=== PATIENT | male | born 2000 | race Caucasian/White ===

== ENCOUNTER 2020-11-14 01:31 | Inpatient (IN) ==
[2020-11-14] MEDS ORDERED: ceFAZolin 2000MG 2,000 MG/15 ML SYR IV STA (02:24)
[2020-11-14 03:13] LABS: Basophils # (auto) 0.03 K/uL (0-0.2); Basophils % (auto) 0.2 %; Eosinophils # (auto) 0.02 K/uL (0-0.5); Eosinophils % (auto) 0.1 %; Hematocrit (blood only) 46.4 % (42-52); Hemoglobin 15.6 g/dL (14.0-18.0); Immature Granulocytes # (auto) 0.07 K/uL (0.00-0.02); Immature Granulocytes % (auto) 0.4 %; Lymphocytes # (auto) 1.07 K/uL (1.2-3.4); Lymphocytes % (auto) 5.6 %; Mean Corpuscular Hemoglobin 28.3 pg (25-34); Mean Corpuscular Hgb Conc 33.6 g/dL (32-36); Mean Corpuscular Volume 84.2 fL (80-100); Monocytes # (auto) 1.14 K/uL (0.11-0.59); Neutrophils # (auto) 16.66 K/uL (1.4-6.5); Neutrophils % (auto) 87.7 %; Platelet Count 346 K/uL (130-400); RDW Coefficient of Variation 14.4 % (11.5-14.5); RDW Standard Deviation 44.5 fL (36.4-46.3); Red Blood Count 5.51 M/uL (4.7-6.1); White Blood Count 18.99 K/uL (4.8-10.8)
[2020-11-14 03:35] LABS: Albumin Level 4.9 gm/dl (3.4-5.0); Calcium 9.3 mg/dl (8.5-10.1); Creatinine Clr Calc Pharmacy 114.5 ml/min; Est GFR (African American) 107.8 ml/min; Est GFR (Non-African American) 93.1 ml/min; Potassium 3.5 mmol/L (3.5-5.1)
[2020-11-14 03:38] LABS: Albumin Globulin Ratio 1.2 (0.9-2); Bilirubin,Total 0.8 mg/dl (0.2-1); Globulin 4.1 gm/dl (2.5-4.0)
--- NOTE | 2020-11-14 03:38 | Emergency Department Note ---
History of Present Illness General Chief complaint: Dental/Oral Stated complaint: TOOTH BROKEN History of Present Illness Maximum Pain Intensity: 3 Meir Roman is a 20 year old male with no pertinent past medical history who presents to the Emergency Department for evaluation of left facial trauma after suffering a fall and striking his face on the edge of a stair just prior to arrival. The patient states that he was out drinking alcohol this evening. When he got home, he opened his front door and tripped over his dog causing him to fall forward into the stairway in front of him. He subsequently struck his left face/jaw off of the edge of the fist step. His friend at bedside states that he also hit his left head and briefly lost consciousness before coming to. The patient noticed bleeding coming from his left lower molars and had pain to his jaw. His friend also noticed an abrasion to his right scalp. The patient did not want to come to the Emergency Department but after much prompting, his friend convinced him to come for further evaluation. On arrival, the patient is complaining of a "broken left lower wisdom tooth" but has obvious trauma to his left mandible with visible bone with step-off between the back molars that is mobile with opening/closing his mouth. There is slow oozing of blood from the area, controlled with gauze packing. He denies taking any medications prior to arrival. He currently rates his pain as a 3/10 which worsens with movement of his jaw. The patient denies additional pain or injuries to his neck, chest, abdomen, pelvis, back, upper or lower extremities. He states that his tetanus status is up to date. Allergies Allergy/AdvReac Type Severity Reaction Status Date / Time No Known Allergies Allergy Unverified 11/14/20 07:28 Past Med/Surg History Medical History No significant active problems Surgical History No pertinent past surgical history Social History Smoking Status: Current every day smoker Second Hand Exposure: Yes; Do You Dip or Chew Tobacco: No; Tobacco Cessation Education Requested by Patient: No Hx Alcohol Use: Yes Hx Substance Use: No Preferred Language: Kyrgyz Communication Ability: Effective Nut Cracker Required: No Beliefs That Will Affect Care: Cultural Current Living Situation: Boarding Home Other Information That Helps Us Care for You: No Feels Safe at Home: Yes Safety Concerns: Feels Safe At This Time Review of Systems A total of 10 systems reviewed and were otherwise negative Physical Exam Vital Signs Vital Signs - 24 hr 11/14/20 01:36 11/14/20 03:09 11/14/20 03:30 Temperature 36.3 C L Temperature Source Temporal Artery Scan Pulse Rate 105 H 98 H Pulse Rate [Finger] 81 Pulse Rate from SpO2 Sensor 98 H Respiratory Rate 16 22 Respiratory Effort / Characteristics Non-Labored Spontaneous Respiratory Depth Normal Respiratory Pattern Regular Blood Pressure 144/91 H 140/89 Blood Pressure [Left Arm] 143/83 H Blood Pressure Mean 108 106 Blood Pressure Mean [Left Arm] 103 Blood Pressure Position Sitting Pulse Oximetry 96 97 98 Oxygen Delivery Method Room Air Room Air Sepsis Recent Fever Within 48 Hours No Sepsis New/Unexplained Change in Mental Status N/A Sepsis Action Taken by Nursing No Action Required 11/14/20 04:00 11/14/20 04:30 Temperature Temperature Source Pulse Rate 103 H 90 Pulse Rate [Finger] Pulse Rate from SpO2 Sensor 90 Respiratory Rate 13 13 Respiratory Effort / Characteristics Respiratory Depth Respiratory Pattern Blood Pressure 140/91 134/72 Blood Pressure [Left Arm] Blood Pressure Mean 107 92 Blood Pressure Mean [Left Arm] Blood Pressure Position Pulse Oximetry 99 Oxygen Delivery Method Sepsis Recent Fever Within 48 Hours Sepsis New/Unexplained Change in Mental Status Sepsis Action Taken by Nursing General: The patient is well-developed, well-nourished and in no acute distress. Laughing and takes much prompting to cooperate with exam. Head/eyes: Contusion to the right parietal scalp with overlying abrasion. Pupils 4mm and reactive to light bilaterally, EOMI Face/Oral: Left face appears edematous compared to the right with tenderness to palpation over the left jaw and TMJ. Obvious trauma to the left mandible with open fracture and visible bone between the 2nd and 3rd left lower molars with step-off which is mobile with opening/closing of the jaw. Slow ooze of blood from the area, controlled with gauze packing. Teeth do not appear to be fractured, no additional obvious trauma within the mouth. Oropharynx patent. Neck: Trachea midline, no meningismus, no mid-line cervical tenderness Resp: Good inspiratory effort on room air, lung sounds clear bilaterally CV: Regular rate and rhythm, peripheral pulses palpated Back: No midline tenderness to the thoracic spine, no midline tenderness to the lumbar spine, no obvious step-offs or deformities Abd: Soft, non-distended, non-tender to palpation without rebound, guarding or rigidity, no peritoneal signs MSK: No obvious long bone deformities. Moving all extremities with strength 5/5 throughout, sensation and peripheral pulses intact Neuro: Awake, alert and oriented x 3 Course Administered Medications Sodium Chloride (Nss 1000ml) 1,000 mls @ 150 mls/hr IV .[id number] JT Stop: 12/14/20 05:44 Last Admin: 11/14/20 06:08 Dose: 150 mls/hr Documented by: [id number] Discontinued Medications Cefazolin Sodium (Ancef 2000mg) 2,000 mg in 15 mls @ 3.75 mls/min IV NOW STA Stop: 11/14/20 02:27 Last Admin: 11/14/20 03:57 Dose: 3.75 mls/min Documented by: [id number] Ampicillin Sodium/Sulbactam Sodium 3,000 mg/ Sodium Chloride 108 mls @ 200 mls/hr IV NOW STA; Protocol Stop: 11/14/20 05:57 Last Infusion: 11/14/20 06:46 Dose: 0 mls/hr Documented by: [id number] Admin: 11/14/20 06:08 Dose: 200 mls/hr Documented by: [id number] Medical Decision Making Differential Diagnosis Intracranial trauma, cervical trauma, facial trauma, oral trauma, fractured teeth, fractured mandible/maxilla, jaw dislocation, alcohol intoxication among others were considered. Laboratory Data Result diagrams: 11/14/20 02:53 11/14/20 02:53 Lab Results 11/14/20 11/14/20 11/14/20 Range/Units 02:53 02:53 02:53 WBC 18.99 H (4.8-10.8) K/uL RBC 5.51 (4.7-6.1) M/uL Hgb 15.6 (14.0-18.0) g/dL Hct 46.4 (42-52) % MCV 84.2 (80-100) fL MCH 28.3 (25-34) pg MCHC 33.6 (32-36) g/dL RDW Std Deviation 44.5 (36.4-46.3) fL RDW Coeff of Riana 14.4 (11.5-14.5) % Plt Count 346 (130-400) K/uL MPV 10.0 (7.4-10.4) fL Immature Gran % (Auto) 0.4 % Neut % (Auto) 87.7 % Lymph % (Auto) 5.6 % Charlotte % (Auto) 6.0 % Eos % (Auto) 0.1 % Baso % (Auto) 0.2 % Neut # (Auto) 16.66 H (1.4-6.5) K/uL Lymph # (Auto) 1.07 L (1.2-3.4) K/uL Charlotte # (Auto) 1.14 H (0.11-0.59) K/uL Eos # (Auto) 0.02 (0-0.5) K/uL Baso # (Auto) 0.03 (0-0.2) K/uL Immature Gran # (Auto) 0.07 H (0.00-0.02) K/uL Sodium 136 (136-145) mmol/L Potassium 3.5 (3.5-5.1) mmol/L Chloride 109 H (98-107) mmol/L Carbon Dioxide 26 (21-32) mmol/L Anion Gap 1.0 L (3-11) BUN 7 (7-18) mg/dl Creatinine 1.13 (0.6-1.4) mg/dl Est Cr Clr Drug Dosing 114.5 ml/min Est GFR ( Amer) 107.8 ml/min Est GFR (Non-Af Amer) 93.1 ml/min BUN/Creatinine Ratio 6.0 L (10-20) Glucose 120 H (70-99) mg/dl Calcium 9.3 (8.5-10.1) mg/dl Total Bilirubin 0.8 (0.2-1) mg/dl AST 25 (15-37) U/L ALT 40 (12-78) U/L Alkaline Phosphatase 87 (45-117) U/L Total Protein 9.0 H (6.4-8.2) gm/dl Albumin 4.9 (3.4-5.0) gm/dl Globulin 4.1 H (2.5-4.0) gm/dl Albumin/Globulin Ratio 1.2 (0.9-2) Ethyl Alcohol mg/dL 154.0 H (0-3) mg/dl Imaging Data Radiologist's Impression: Cervical Spine CT 11/14/20 02:24 CT cervical spine wo con CLINICAL HISTORY: 20 years-old Male with head/face trauma. Acute head and facia l trauma status post fall COMPARISON: CT head and maxillofacial studies of same day TECHNIQUE: Multiple axial CT images of the cervical spine were obtained without contrast. A dose lowering technique was utilized adhering to the principles of ALARA. FINDINGS: Vertebral body heights and alignment are normal. No fracture or subluxation is identified. Straightening of the normal cervical lordosis. The intervertebral disc spaces are preserved. No significant central canal or neural foraminal stenosis is identified. Deep tissue air is noted within the left parapharyngeal tissues and also surrounding acute left mandibular fracture. The visualized lung apices appear clear. IMPRESSION: 1. No acute cervical spine fracture or subluxation. 2. Partially imaged acute and displaced left mandibular fracture with associated deep tissue air. Please refer to the CT maxillofacial study of same day for additional findings. ACT 112: Negative or not required by law. The above report was generated using voice recognition software. It may contain grammatical, syntax or spelling errors. Electronically signed by: Alfredito Diego M.D. 11/14/2020 8:[address] 11/14/20 02:24 CT facial bones wo con CLINICAL HISTORY: 20 years-old Male presenting with facial trauma, broken L mandible. Acute facial trauma status post fall COMPARISON STUDY: CT head and cervical spine studies of same day TECHNIQUE: High-resolution CT scan of the facial bones is performed. Images are reviewed in the axial, sagittal, and coronal planes. IV contrast was not administered for this examination. A dose lowering technique was utilized adhering to the principles of ALARA. FINDINGS: The bony orbits are intact and the orbital contents are within normal limits. The zygomatic arches, nasal bones, and pterygoid plates are preserved. The maxilla appears intact. There is an acute fracture fracture involving the left mandibular body with 8 mm medial displacement. The fracture extends through the third mandibular root. There is a considerable amount of adjacent deep tissue gas which extends into the parapharyngeal tissues. No additional mandibular fracture identified. No TMJ dislocation. The mastoid air cells and middle ear cavities are clear. Minimal mucosal thickening of the maxillary sinuses. The imaged calvarium and upper cervical spine are within normal limits. Partially imaged brain parenchyma is within normal limits. IMPRESSION: Acute and displaced fracture of the left mandibular body with fracture extension through the root of the third mandibular molar. ACT 112: Negative or not required by law. The above report was generated using voice recognition software. It may contain grammatical, syntax or spelling errors. Electronically signed by: Alfredito Diego M.D. 11/14/2020 8:[address] 11/14/20 02:24 CT head/brain wo con CLINICAL HISTORY: 20 years-old Male with hit head/face on step, facial trauma. Acute head injury status post trauma TECHNIQUE: Multiple axial CT images of the head were obtained without contrast. A dose lowering technique was utilized adhering to the principles of ALARA. CT DOSE: 1067.37 mGy.cm COMPARISON: CT maxillofacial same day FINDINGS: No acute intracranial hemorrhage, midline shift, intracranial mass, hydrocephalus, territorial ischemia or abnormal extra-axial collection. The calvarium is intact. 7.6 x 0.8 cm right parietal scalp hematoma. Partially imaged deep tissue air about the left parapharyngeal tissues. The paranasal sinuses, mastoid air cells, and middle ear cavities are clear. IMPRESSION: 1. No acute intracranial abnormality or calvarial fracture. 2. Right parietal scalp hematoma. 3. Partially imaged deep tissue air within the left parapharyngeal tissues secondary to acute left mandibular fracture as described on the CT maxillofacial study of same day. ACT 112: Negative or not required by law. The above report was generated using voice recognition software. It may contain grammatical, syntax or spelling errors. Electronically signed by: Alfredito Diego M.D. 11/14/2020 8:08 AM MDM Narrative Physical exam and history were performed. Nursing notes, EMR, and medication list were personally reviewed. Patient presented to the emergency department for evaluation of left facial trauma after he fell while intoxicated and struck his left face and right parietal scalp off of the edge of a step just prior to arrival. On exam, the patient appeared to have an open fracture through his left molars with visible bone and obvious step-off which was mobile with opening/closing of his jaw. After extensive discussion with the patient between myself, my attending physician, Dr. Gutierrez, and his mother whom was on speaker phone about the significance of his physical exam findings and the need for further evaluation of the extent of his injuries, he agreed to undergo CAT scan of his head, face, and neck. IV access was also established at this time and patient was given Ancef 2 mg for empiric coverage. Labs including CBC, CMP and alcohol were also obtained. Concurrently, patient was placed on cardiac monitoring. I offered the patient pain medication on several occasions however he declined my offer and stated that he was fine. Lab work resulted as above and was reviewed by myself. He does have leukocytosis with a white blood cell count of 18.99 consistent with his trauma. His blood alcohol level is elevated at 154.0 and his creatinine is slightly elevated at 1.1 likely due to alcohol consumption. CAT scans of the head, face and neck were obtained and reviewed by radiologist and myself as above. CAT scan of the head did show a small right parietal hematoma, however there was no acute intracranial trauma or skull fracture seen. CAT scan of the cervical spine was negative for acute traumatic injury. CAT scan of the face did show a left mandibular body fracture through the third m olar root with soft tissue gas in the neck that was likely related to the penetrating soft tissue injury near the fracture site. I discussed the results of the imaging and lab work with Dr. Gutierrez as well as the patient at bedside. Dr. Zaidi of Oral and Plastic Surgery was also contacted and stated that he would be in to evaluate the patient in a couple of hours. He recommended admission to the hospital in the meantime. The hospitalist, Dr. Vargas, was then contacted and agreed to evaluate the patient as well. The chart was completed utilizing [employer] Voice Recognition Software. Grammatical errors, random word insertions, pronoun errors, and incomplete sentences are an occasional consequence of this system due to software limitations, ambient noise, and hardware issues. Any formal questions or concerns about the content, text, or information contained within the body of this dictation should be directly addressed to the provider for clarification. Impression & Plan Acute alcohol intoxication, Open fracture of left side of mandible, Contusion of scalp, Abrasion of scalp, Leukocytosis Discharge Plan Visit Data Chief Complaint: Dental/Oral Stated Complaint: TOOTH BROKEN ED Provider: Delia Gutierrez ED Midlevel Provider: Anitra Perry Discharge Problem: Acute alcohol intoxication, Open fracture of left side of mandible, Contusion of scalp, Abrasion of scalp, Leukocytosis Patient Disposition: Admitted As Inpatient Discharge Instructions Interventions: ED Discharge Assessment Last Done: 11/14/20 06:58
--- NOTE | 2020-11-14 04:52 | History & Physical Report ---
Date of Service November 14, 2020 Assessment & Plan (1) Fracture of left side of body of mandible: Plan: 20 yo M admitted for management of acute fracture of L mandible. Left Mandibular Body Fracture - NPO - Unasyn - consult to [facility] for surgical repair later today - maintain packing - wbc 18k - preop covid test pending Alcohol Intoxication - ETOH 154 - cautious use of sedative pain medications in setting of acute intoxication dvt ppx: low risk, scds postop fen/gi; npo, NS @150ml/hr code status: full code dispo: med/surg (2) Alcohol intoxication: History of Present Illness Primary Care Provider: SHELLY PCP 20 yo M with no PMH brought to ER after falling and hitting his jaw on a staircase. He states he had just gotten into his house in the dark and tripped over some boxes and a dog while trying to go up the stairs, and fell hitting his head on the stair. He states his entire left jaw is numb at this time and doesn't currently hurt. Unable to remember when he last had a Tdap shot but did get all of his required vaccinations for school, which should've been between ages 11-12. No complaints at this time. Allergies Allergy/AdvReac Type Severity Reaction Status Date / Time No Known Allergies Allergy Unverified 11/14/20 07:28 Past Med/Surg History Medical History Smoker Surgical History No pertinent past surgical history Social History Smoking Status: Current every day smoker Second Hand Exposure: Yes; Do You Dip or Chew Tobacco: No; Tobacco Cessation Education Requested by Patient: No Hx Alcohol Use: Yes Hx Substance Use: No Preferred Language: Portuguese Communication Ability: Effective Application Integration Specialist Required: No Beliefs That Will Affect Care: Cultural Current Living Situation: Boarding Home Other Information That Helps Us Care for You: No Feels Safe at Home: Yes Safety Concerns: Feels Safe At This Time Review of Systems Review of Systems: All systems reviewed & are unremarkable except as noted in Subjective Physical Exam Physical Exam: Constitutional: in NAD Eyes: EOMI, pupils equal and reactive bilaterally, no scleral icterus Mouth: packing on left inner cheek Jaw: visibly swollen over left mandible compared to right Cardiac: RRR, no murmurs, gallops or rubs. Normal S1, S2 Pulm: CTA BL, no wheezes, rhonchi, crackles or rubs, moving air well throughout both lungs Abd: soft, nontender, nondistended, normal bowel sounds, no rebound or guarding Extremities: 2+ peripheral pulses, no edema Neuro: no focal deficits, moving all 4 limbs, A&Ox3 Results & Data Results & Data ([facility]) Vital Signs (Past 12 Hours) Vital Signs Temp Pulse Pulse Resp BP BP Pulse Ox 11/14/20 03:30 81 143/83 H 98 11/14/20 01:36 36.3 C L 105 H 16 144/91 H 96 Laboratory Results Laboratory Results WBC 18.99 K/uL (4.8-10.8) H 11/14/20 02:53 RBC 5.51 M/uL (4.7-6.1) 11/14/20 02:53 Hgb 15.6 g/dL (14.0-18.0) 11/14/20 02:53 Hct 46.4 % (42-52) 11/14/20 02:53 MCV 84.2 fL (80-100) 11/14/20 02:53 MCH 28.3 pg (25-34) 11/14/20 02:53 MCHC 33.6 g/dL (32-36) 11/14/20 02:53 RDW Std Deviation 44.5 fL (36.4-46.3) 11/14/20 02:53 RDW Coeff of Riana 14.4 % (11.5-14.5) 11/14/20 02:53 Plt Count 346 K/uL (130-400) 11/14/20 02:53 MPV 10.0 fL (7.4-10.4) 11/14/20 02:53 Immature Gran % (Auto) 0.4 % 11/14/20 02:53 Neut % (Auto) 87.7 % 11/14/20 02:53 Lymph % (Auto) 5.6 % 11/14/20 02:53 Dawson % (Auto) 6.0 % 11/14/20 02:53 Eos % (Auto) 0.1 % 11/14/20 02:53 Baso % (Auto) 0.2 % 11/14/20 02:53 Neut # (Auto) 16.66 K/uL (1.4-6.5) H 11/14/20 02:53 Lymph # (Auto) 1.07 K/uL (1.2-3.4) L 11/14/20 02:53 Dawson # (Auto) 1.14 K/uL (0.11-0.59) H 11/14/20 02:53 Eos # (Auto) 0.02 K/uL (0-0.5) 11/14/20 02:53 Baso # (Auto) 0.03 K/uL (0-0.2) 11/14/20 02:53 Immature Gran # (Auto) 0.07 K/uL (0.00-0.02) H 11/14/20 02:53 Sodium 136 mmol/L (136-145) 11/14/20 02:53 Potassium 3.5 mmol/L (3.5-5.1) 11/14/20 02:53 Chloride 109 mmol/L (98-107) H 11/14/20 02:53 Carbon Dioxide 26 mmol/L (21-32) 11/14/20 02:53 Anion Gap 1.0 (3-11) L 11/14/20 02:53 BUN 7 mg/dl (7-18) 11/14/20 02:53 Creatinine 1.13 mg/dl (0.6-1.4) 11/14/20 02:53 Est Cr Clr Drug Dosing 114.5 ml/min 11/14/20 02:53 Est GFR ( Amer) 107.8 ml/min 11/14/20 02:53 Est GFR (Non-Af Amer) 93.1 ml/min 11/14/20 02:53 BUN/Creatinine Ratio 6.0 (10-20) L 11/14/20 02:53 Glucose 120 mg/dl (70-99) H 11/14/20 02:53 Calcium 9.3 mg/dl (8.5-10.1) 11/14/20 02:53 Total Bilirubin 0.8 mg/dl (0.2-1) 11/14/20 02:53 AST 25 U/L (15-37) 11/14/20 02:53 ALT 40 U/L (12-78) 11/14/20 02:53 Alkaline Phosphatase 87 U/L (45-117) 11/14/20 02:53 Total Protein 9.0 gm/dl (6.4-8.2) H 11/14/20 02:53 Albumin 4.9 gm/dl (3.4-5.0) 11/14/20 02:53 Globulin 4.1 gm/dl (2.5-4.0) H 11/14/20 02:53 Albumin/Globulin Ratio 1.2 (0.9-2) 11/14/20 02:53 Ethyl Alcohol mg/dL 154.0 mg/dl (0-3) H 11/14/20 02:53 COVID-19 Eval Order Covid19 at [facility] 11/14/20 04:[address]: left mandibular body fracture through the third molar root Head Ct: negative for intracranial bleed. Gas in neck soft tissue likely secondary to penetrating injury. C-spine CT: no fracture or malalignment. Supervising Physician Co-Signing Physician Notes Attending addendum: I have physically seen this patient, have supervised the medical residents activities, and agree with the H&P unless as otherwise noted. Assessment and Plan: Left Mandibular Body fracture- NPO Given Ancef 2g IV from the ED Admit on Unasyn MF Dr. Zaidi to take to the OR later today. Alcohol Intoxication- counselling offered, but patient declined Resident Activity Tracking Resident Involvement: Resident Care Provided Care Provided: Adult Hospital Medicine
[2020-11-14] MEDS ORDERED: AMPICILLIN/SULBACTAM SOD 3,000 MG in 0.9 % SODIUM CHLORIDE 100 ML IV STA (05:25)
[2020-11-14] MEDS: SODIUM CHLORIDE 0.9% 1000ML 1,000 ML IV SCH ×3 (06:08→21:30)
--- NOTE | 2020-11-14 08:04 | CT Scan Report ---
CT cervical spine wo con CLINICAL HISTORY: 20 years-old Male with head/face trauma. Acute head and facial trauma status post fall COMPARISON: CT head and maxillofacial studies of same day TECHNIQUE: Multiple axial CT images of the cervical spine were obtained without contrast. A dose low ering technique was utilized adhering to the principles of ALARA. FINDINGS: Vertebral body heights and alignment are normal. No fracture or subluxation is identified. Straightening of the normal cervical lordosis. The intervertebral disc spaces are preserved. No s ignificant central canal or neural foraminal stenosis is identified. Deep tissue air is noted within the left parapharyngeal tissues and also surrounding acute left frank bular fracture. The visualized lung apices appear clear. IMPRESSION: 1. No acute cervical spine fracture or subluxation. 2. Partially imaged acute and displaced left mandibular fracture with associated deep tissue air. Ple ase refer to the CT maxillofacial study of same day for additional findings. ACT 112: Negative or not required by law. The above report was generated using voice recognition software. It may contain grammatical, syntax o r spelling errors. Electronically signed by: Alfredito Diego M.D. 11/14/2020 8:03 AM
--- NOTE | 2020-11-14 08:09 | CT Scan Report ---
CT head/brain wo con CLINICAL HISTORY: 20 years-old Male with hit head/face on step, facial trauma. Acute head injury sta tus post trauma TECHNIQUE: Multiple axial CT images of the head were obtained without contrast. A dose lowering tech nique was utilized adhering to the principles of ALARA. CT DOSE: 1067.37 mGy.cm COMPARISON: CT maxillofacial same day FINDINGS: No acute intracranial hemorrhage, midline shift, intracranial mass, hydrocephalus, territorial ischem ia or abnormal extra-axial collection. The calvarium is intact. 7.6 x 0.8 cm right parietal scalp hematoma. Partially imaged deep tissue air about the left parapharyngeal tissues. The paranasal sinuses, mastoid air cells, and middle ear cavi ties are clear. IMPRESSION: 1. No acute intracranial abnormality or calvarial fracture. 2. Right parietal scalp hematoma. 3. Partially imaged deep tissue air within the left parapharyngeal tissues secondary to acute left ma ndibular fracture as described on the CT maxillofacial study of same day. ACT 112: Negative or not required by law. The above report was generated using voice recognition software. It may contain grammatical, syntax o r spelling errors. Electronically signed by: Alfredito Diego M.D. 11/14/2020 8:08 AM
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
[2020-11-14] MEDS: CHLORHEXIDINE GLUCONATE 0.12% 480 ML MT PRN (09:39)
[2020-11-14] MEDS ORDERED: ceFAZolin 500 MG in SYRINGE 0 ML IV SCH (09:45)
[2020-11-14] MEDS ORDERED: ceFAZolin 1000MG 1,000 MG/7.5 ML SYR IV SCH (12:00)
--- NOTE | 2020-11-14 13:06 | Hospitalist Progress Note ---
Date of Service November 14, 2020 Assessment & Plan (1) Alcohol intoxication: (2) Fracture of left side of body of mandible: Plan: 20 yo M admitted for management of acute fracture of L mandible. Left Mandibular Body Fracture - Patient seen by Dr. Zaidi this morning. Plan is for surgery tomorrow. - Full liquid diet today as tolerated. NPO after midnight. - IVF NSS 150mls/hr - Pain control with Lortab elixir. - White count elevated at 18.99 on admission. Recheck in AM. Empiric antibiotics - Ancef 2gm q8hrs x 48hrs. Further antibiotics per surgery recommendations post- op. Alcohol Intoxication - ETOH 154 on admission - NSS 150mls/hr - He denies any symptoms of veisalgia dvt ppx: low risk, scds postop code status: full code dispo: med/surg (3) Numbness and tingling of left side of face: (4) Fractured tooth due to trauma with complication: Plan: No charge for this visit as the patient was admitted less than 24hrs ago. Admission and Anticipated Discharge Date Admission Date: November 14, 2020 Supervising Physician Co-Signing Physician Notes Attending Attestation - Chart reviewed in detail, care plan d/w CHERISE Nails. I agree w/ the joyner components of her documentation. L mandibular fracture surgery tomorrow by Dr Zaidi. Brendan Reyes MD Subjective 20 year old male admitted overnight for left mandible fracture. Patient reports he was he had been intoxicated when he tripped over his dog and landed on some boxes. He reports some discomfort and numbness of the left jaw on exam today. States he is having difficulty swallowing. Ethyl alcohol level was 154 on arrival. He denies any headache, nausea, or vomiting this morning. Review of Systems Review of Systems: All systems reviewed & are unremarkable except as noted in Subjective Physical Exam Physical Exam: Temp Pulse Resp BP Pulse Ox 37.6 C H 99 H 16 137/86 95 11/14/20 07:35 11/14/20 07:35 11/14/20 07:35 11/14/20 07:35 11/14/20 07:35 Swollen left jaw on exam. No ecchymosis noted on exam. Constitutional: average body habitus; no acute distress Eyes: + anicteric sclerae ENMT: Ears: no hearing impairment Neck: normal visual inspection Respiratory: normal respiratory effort, lungs clear to auscultation Cardiovascular: RRR, no murmur, no edema Psychiatric: A+Ox3, euthymic affect Results & Data Results & Data ([facility]) Vital Signs (Past 12 Hours) Vital Signs Temp Pulse Pulse Resp BP BP Pulse Ox 11/14/20 07:35 37.6 C H 99 H 16 137/86 95 11/14/20 06:30 94 H 14 135/56 L 11/14/20 06:00 112 H 12 99/80 L 11/14/20 05:30 91 H 14 132/91 11/14/20 05:00 113 H 20 134/82 99 11/14/20 04:30 90 13 134/72 99 11/14/20 04:00 103 H 13 140/91 11/14/20 03:30 81 143/83 H 98 11/14/20 03:09 98 H 22 140/89 97 11/14/20 01:36 36.3 C L 105 H 16 144/91 H 96 PG Care Time/CCT Total # of Minutes Spent Total Time Spent with Patient: Total time spent is greater than 50% in coordination of care (as documented) at patient's floor/unit and/or counseling patient: Coding Level of Care Code None Diagnoses Alcohol intoxication F10.929 Fracture of left side of body of mandible S02.602A Numbness and tingling of left side of face R20.0; R20.2 Fractured tooth due to trauma with complication S02.5XXA
[2020-11-14] MEDS: ceFAZolin 2000MG 2,000 MG/15 ML SYR IV SCH (18:34)
--- NOTE | 2020-11-14 21:41 | Billing Data ---
Date of Service November 14, 2020 Coding Level of Care Code 21211 Initial Inpt Care Lvl 2
[2020-11-15] MEDS: ceFAZolin 2000MG 2,000 MG/15 ML SYR IV SCH ×3 (02:22→17:54)
[2020-11-15] MEDS: SODIUM CHLORIDE 0.9% 1000ML 1,000 ML IV SCH ×3 (03:54→16:16)
[2020-11-15 06:32] LABS: Basophils # (auto) 0.02 K/uL (0-0.2); Basophils % (auto) 0.2 %; Eosinophils # (auto) 0.13 K/uL (0-0.5); Eosinophils % (auto) 1.3 %; Hematocrit (blood only) 43.5 % (42-52); Hemoglobin 13.9 g/dL (14.0-18.0); Immature Granulocytes # (auto) 0.02 K/uL (0.00-0.02); Immature Granulocytes % (auto) 0.2 %; Lymphocytes % (auto) 28.6 %; Mean Corpuscular Hemoglobin 27.7 pg (25-34); Mean Corpuscular Volume 86.7 fL (80-100); Monocytes # (auto) 1.32 K/uL (0.11-0.59); Neutrophils # (auto) 5.76 K/uL (1.4-6.5); Neutrophils % (auto) 56.7 %; Platelet Count 267 K/uL (130-400); RDW Coefficient of Variation 14.8 % (11.5-14.5); Red Blood Count 5.02 M/uL (4.7-6.1); White Blood Count 10.15 K/uL (4.8-10.8)
[2020-11-15 07:13] LABS: BUN Creatinine Ratio 9.7 (10-20); Calcium 9.1 mg/dl (8.5-10.1); Est GFR (African American) 128.1 ml/min; Est GFR (Non-African American) 110.5 ml/min; Potassium 3.7 mmol/L (3.5-5.1)
[2020-11-15] MEDS ORDERED: ACETAMINOPHEN 1000 MG/100 ML IV IV ONE (07:19)
[2020-11-15] MEDS ORDERED: OXYMETAZOLINE 0.05% 30 ML BTL ONE (07:19)
--- NOTE | 2020-11-15 07:26 | Anesthesiology Consultation ---
Date of Service November 15, 2020 Assessment & Plan (1) Encounter for pre-operative examination: History Surgery Operation Date: 11/15/20 07:30 Proposed Procedures p Open Reduction Mandible - Myron Al Zaidi, DMD Height/Weight Height: 6 ft Weight: 91.4 kg Allergies Allergy/AdvReac Type Severity Reaction Status Date / Time No Known Allergies Allergy Unverified 11/14/20 07:28 Medications Active Medications Generic Name Dose Route Start Last Admin Trade Name Freq PRN Reason Stop Dose Admin Chlorhexidine Gluconate 15 ml 11/14/20 08:57 11/14/20 09:39 Chlorhexidine Gluconate 0.12% 480 Ml MT 12/14/20 08:56 15 ml Q8H PRN Administration Pain s/p jaw fx Sodium Chloride 1,000 mls @ 150 mls/hr 11/14/20 05:45 11/15/20 03:54 Nss 1000ml IV 12/14/20 05:44 150 mls/hr .Q6H40M JT Administration Cefazolin Sodium 2,000 mg in 15 mls @ 3.75 mls/min 11/14/20 18:00 11/15/20 02:22 Ancef 2000mg IV 11/16/20 17:44 3.75 mls/min Q8H JT Administration Past Medical History Medical History Smoker Past Surgical History Surgical History No pertinent past surgical history Social History Smoking Status: Current every day smoker tobacco type: e-cigarettes Do You Dip or Chew Tobacco: No Hx Alcohol Use: Yes alcohol intake frequency: a few times a week Hx Substance Use: Yes substance use type: marijuana (Daily) Physical Exam Vital Signs Last Vital Signs Temp 37.4 C 11/14/20 23:01 Pulse 70 11/14/20 23:01 Resp 16 11/14/20 23:01 BP 119/75 11/14/20 23:01 Pulse Ox 97 11/14/20 23:01 Testing Laboratory Results 11/15/20 06:18 11/15/20 06:18
[2020-11-15] MEDS ORDERED: MIDAZOLAM HCL 1 MG/ML 2ML VIAL ONE (07:30)
[2020-11-15] MEDS ORDERED: fentaNYL citrate 100 MCG/2 ML VIAL ONE ×2 (07:31→10:14)
--- NOTE | 2020-11-15 07:32 | History & Physical Bridge Note ---
Date of Service November 15, 2020 History & Physical Bridge Note I have examined the patient, reviewed the History & Physical and in the interval since the performance of the History & Physical I have noted the following changes of clinical significance: no changes noted. OK for open/closed reduction mandible fx patient has profound numbness left V-3 (chaitanya. branch) chin, lip area.
[2020-11-15] MEDS ORDERED: LIDOCAINE 2%/EPINEPHRINE 1:100,000 20ML ONE (07:34)
[2020-11-15] MEDS ORDERED: LIDOCAINE/EPINEPHRINE 1.7 ML CTR ONE (07:34)
[2020-11-15] MEDS ORDERED: TRIAMCINOLONE ACET 0.1% OINT 15 GM TUBE ONE (07:34)
[2020-11-15] MEDS ORDERED: BUPIVACAINE/EPINEPHRINE 0.5% 1:200,000 1.8 ML CARP ONE (07:35)
[2020-11-15] MEDS ORDERED: SCOPOLAMINE 1 MG TDSY TD ONE (07:38)
[2020-11-15] MEDS ORDERED: BUPIVACAINE 0.5 % 5 MG/1 ML MPF 30ML VIAL ONE (07:52)
[2020-11-15] MEDS ORDERED: EPINEPHrine INJ 1 MG/ML AMP ONE (07:52)
[2020-11-15] MEDS ORDERED: MEPERIDINE HCL 25 MG/ML CARP/VIAL IV PRN (08:18)
[2020-11-15] MEDS ORDERED: LABETALOL HCL IV 5 MG/ML 20ML IV PRN (08:18)
[2020-11-15] MEDS ORDERED: ONDANSETRON INJ 2 MG/ML 2 ML VIAL IV PRN ×2 (08:18→11:10)
[2020-11-15] MEDS ORDERED: fentaNYL citrate 100 MCG/2 ML VIAL IV PRN (08:18)
[2020-11-15] MEDS ORDERED: PHENYLEPHRINE 100MCG/ML 5ML SYR IV PRN (08:18)
[2020-11-15] MEDS ORDERED: HYDROmorphone INJ 1 MG/ML SYRINGE IV PRN (08:18)
[2020-11-15] MEDS ORDERED: ePHEDrine sulfate 50 MG/ML AMP IV PRN (08:18)
[2020-11-15] MEDS ORDERED: ATROPINE SULFATE 0.1 MG/ML 10ML SYR IV PRN (08:18)
[2020-11-15] MEDS ORDERED: ROCURONIUM BROMIDE 10 MG/ML 5 ML VIAL IV ONE (08:46)
[2020-11-15] MEDS ORDERED: PROPOFOL IV EMULSION 10 MG/ML 20 ML VIAL IV ONE (08:46)
[2020-11-15] MEDS ORDERED: ONDANSETRON INJ 2 MG/ML 2 ML VIAL ONE (08:46)
[2020-11-15] MEDS ORDERED: DEXAMETHASONE SOD INJ 4 MG/ML VIAL ONE (08:46)
[2020-11-15] MEDS ORDERED: GLYCOPYRROLATE 0.2 MG/ML VIAL ONE (08:46)
[2020-11-15] MEDS ORDERED: METOCLOPRAMIDE HCL INJ 5 MG/ML 2 ML VIAL ONE (08:46)
[2020-11-15] MEDS ORDERED: NEOSTIGMINE METHYLSULFATE 1 MG/ML 10ML VIAL ONE (08:47)
[2020-11-15] MEDS: CHLORHEXIDINE GLUCONATE 0.12% 480 ML MT PRN (09:20)
[2020-11-15] MEDS ORDERED: ACETAMINOPHEN SUSP 325 MG/10.15 ML UDC PO PRN (11:10)
[2020-11-15] MEDS ORDERED: LORazepam 1 MG/2 ML VIAL IV PRN (11:10)
--- NOTE | 2020-11-15 11:17 | Operative Report ---
PG Post Operative Report Pre & Post Diagnosis Operation Date: 11/15/20 07:30 Pre-Op Diagnosis: Fracture of left side of body of mandible Numbness and tingling of left side of face Fractured tooth #17 due to trauma with complication CPT 39227 CPT 16568 (D7240# 17 fractured wisdom tooth in line of jaw fracture) Post-Op Diagnosis: Fracture of left side of body of mandible Numbness and tingling of left side of face Fractured tooth #17 due to trauma with complication I identified the patient and participated in the time-out.: Yes Procedure Operation Date: 11/15/20 07:30 Actual Procedures p Open reduction of left lower jaw fracture with application of Arch Bars and 24 guage wire, Removal of fractured tooth #17 and closure of laceration(Left) - Myron Zaidi, CHIP Surgeon Myron Zaidi, CHIP Metal Dealer none Estimated Blood Loss 10 Findings Consistent with Post-Op Diagnosis displaced jaw fracture # 17 site with displacement Specimens none Drains none Anesthesia Type General Indications gossly displaced left mandibular fracture Description of Procedure Once cleared for surgery general anesthesia was achieved, the eyes were protec federico by the anesthesia dept criteria.. A time out was take for patient ID, antibiotics, equipment and position verification once all agreed the procedure began. Local anesthesia was given into each area using Marcaine with a vasoconstrictor ( 1.8 ml per site). A throat pack was placed after the oral cavity was irrigated with saline. Once a surgical level of anesthesia was obtained and the local anesthesia was given time for the blocks the surgery was started. I turned my attention to the fracture side lower left jaw which was fractured between tooth # 17-18. # 17 was impacted in the fractured segment and displaced. There was a very deep laceration from the external ridge area over the impacted tooth and into the floor of the mouth. It was noted that tooth # 18 had a chip on the buccal surface and a scientology will be needed. This tooth was not included in the arch bar. Lower wisdom teeth CBI # 17 The full thick muco-periosteal flap was made in the laceration on the external oblique ridge to avoid the lingual nerve. The flap was reflected to expose the impacted tooth. The drill with a round bur was used to remove bone,The tooth was removed with a 301 elevator, the nerve was intact, there was no bleeding. The bone was trimmed, smoothed and the flap and the laceration was closed with 2-0 chromic sutures. Prior to closure I noted the displacement of the fracture sites and tethering of the inferior nerve left side in the fracture site When the # 17 wisdom tooth was removed I inspected the sites to insure all bleeding was controlled. I now turned my attention to the placement of the arch bars Placement of Arch Bars Upper/Lower teeth: Local anesthesia in the form of Marcaine with a vasoconstrictor, approximately 10 cc of the local anesthesia was injected. The fractured was reduced somewhat and the occlusion was checked. The arch bars were placed on the lower and upper teeth with 24 gauge stainless steel wires. It was noted that there was instability of the fracture and an open reduction was needed with place fixation. Open Reduction and direct fixation of the left fracture site After the arch bars were placed I used 24 GSSW to secure fixation while I placed the fixation plate. The occlusion was excellent. It was not stable on the left side due to the fracture. Open reduction was necessary. The electrosurg needle was used to make an incision in the mucobuccal fold left side. The distracted fractured segments were exposed and irrigated. I was able to reduce the fracture to secure ideal anatomic relationships of the segments. The trocar was placed as per standard fashion in the left check. A 2 mm 4 hole bone plate with 4 6 mm locking screws was placed using the mono cortex method. Great care was used in drilling only through the cortical bone. The plate was made passive and placed above the inferior boarder. The Fixation was very secure and the occlusion was stable. The site was irrigated and closed with a 4-0 Vicryl suture. I will plan to keep Meir in light elastics for at least 3 weeks on a very soft diet. I will communicate this to the Oral Surgeon who will provide follow up care. The procedure was completed. He was allowed to wake up from the anesthesia. I removed the throat pack and suctioned the throat and passed an OG tube, All instrument and sponge count was correct. the patient was allowed to awake from the anesthesia. Once full awake the anesthesia tube was removed and the patient was taken to the recovery room with all vital sign stable. The patient tolerated the surgery very well. I will follow the patient Rx and instructions will be given upon discharge. I will arrange for follow up closer to the [facility]. I attest to the content of the Intraoperative Record and any orders documented therein. Any exceptions are noted below.
[2020-11-15] MEDS ORDERED: hydrALAZINE HCL 20 MG/ML VIAL IV ONE (12:12)
[2020-11-15] MEDS ORDERED: hydrALAZINE HCL 20 MG/ML VIAL ONE (12:13)
--- NOTE | 2020-11-15 12:38 | XRay Report ---
MANDIBLE 2 VIEWS CLINICAL HISTORY: Postoperative examination. FINDINGS: AP and crosstable lateral views of the mandible are correlated with facial bone CT dated . There has been buttress plate fixation of a fracture through the left mandibular body with r estoration of near-anatomic alignment. The orthopedic hardware appears intact. No additional fracture is seen. The temporomandibular joints are grossly aligned but incompletely evaluated. Orthodontic reddy rdware is in place. Soft tissue edema and subcutaneous gas overly the left mandible. The bony orbits are intact as visualized. The imaged paranasal sinuses appear clear. IMPRESSION: Expected postoperative findings status post open reduction and internal fixation of a lef t mandibular fracture with sabianism of near-anatomic alignment. Electronically signed by: Chris Trujillo M.D. 11/15/2020 12:37 PM
[2020-11-15] MEDS: KETOROLAC 30 MG/ML VIAL IV SCH ×3 (13:07→23:26)
[2020-11-15] MEDS: dexAMETHasone 6 MG in SYRINGE 0 ML IV SCH ×2 (15:01→19:45)
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
--- NOTE | 2020-11-15 17:14 | Anesthesiology Progress Note ---
Date of Service November 15, 2020 Anesthesia Post Procedure Vital Signs Vital Signs: Temp Pulse Pulse Pulse Resp BP Pulse Ox 11/15/20 15:47 36.9 C 83 20 133/89 96 11/15/20 14:45 36.5 C 66 18 131/84 96 11/15/20 14:15 36.6 C 78 20 140/84 96 11/15/20 13:45 37.2 C 78 16 131/89 97 11/15/20 13:16 37.1 C 74 16 134/83 96 11/15/20 13:15 36.5 C 86 20 142/90 H 96 11/15/20 12:39 61 18 135/98 96 11/15/20 12:30 37.3 C 58 L 12 143/96 H 97 11/15/20 12:25 74 18 142/91 H 97 11/15/20 12:20 57 L 18 134/103 H 96 11/15/20 12:10 61 12 149/108 H 96 11/15/20 12:00 56 L 14 157/116 H 97 11/15/20 11:50 57 L 14 159/116 H 97 11/15/20 11:40 58 L 16 157/109 H 98 11/15/20 11:30 60 19 149/115 H 100 11/15/20 11:23 36.5 C 101 H 20 158/82 H 99 11/14/20 23:01 37.4 C 70 16 119/75 97 Pain Intensity Mouth: Pain Intensity: 8 Throat: Pain Intensity: 5 Transfer of Care Handoff Completed per policy Notes Mental Status: alert / awake / arousable and participated in evaluation Patient Amnestic to Procedure: Yes Nausea / Vomiting: adequately controlled Pain: adequately controlled Airway Patency, RR, SpO2: stable & adequate BP & HR: stable & adequate Hydration State: stable & adequate Anesthetic Complications: no major complications apparent and Pt Satisfied with anesthetic care
[2020-11-15] MEDS ORDERED: CHLORHEXIDINE GLUCONATE 0.12% 480 ML MT SCH (21:00)
[2020-11-15] MEDS ORDERED: TRIAMCINOLONE ACET 0.1% OINT 15 GM TUBE EXT SCH (21:00)
[2020-11-15] MEDS ORDERED: ACETAMINOPHEN 1,000 MG/100 ML VIAL IV PRN (22:00)
[2020-11-16] MEDS: SODIUM CHLORIDE 0.9% 1000ML 1,000 ML IV SCH (01:09)
[2020-11-16] MEDS: ceFAZolin 2000MG 2,000 MG/15 ML SYR IV SCH (01:09)
[2020-11-16] MEDS: dexAMETHasone 6 MG in SYRINGE 0 ML IV SCH ×2 (01:09→07:48)
[2020-11-16] MEDS ORDERED: FLUTICASONE PROPIONATE NA SPR 16 GM BTL SCH (04:00)
[2020-11-16] MEDS: KETOROLAC 30 MG/ML VIAL IV SCH (05:54)
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
--- NOTE | 2020-11-16 15:44 | Electrocardiogram Report ---
Test Reason : Blood Pressure : / mmHG Vent. Rate : 086 BPM Atrial Rate : 086 BPM P-R Int : 110 ms QRS Dur : 094 ms QT Int : 360 ms P-R-T Axes : 052 009 004 degrees QTc Int : 430 ms Sinus rhythm with marked sinus arrhythmia with short NC Minimal voltage criteria for LVH, may be normal variant Borderline ECG No previous ECGs available Confirmed by Kenneth Cardozo ([id number]) on 11/16/2020 3:44:22 PM Referred By: REFERRED SELF Confirmed By:Kenneth Cardozo
== END 2020-11-16 11:20 | disposition home or self-care (01) | DRG 145 ==
LOC: ED 01:31 → SUATTDRO 04:51 → 3N 04:51